=== PATIENT | female | born 1970 | race Caucasian/White ===

== ENCOUNTER 2016-08-30 22:31 | Emergency (ER) | payer MEDICAID, MEDICARE ==
[~2016-08-30] VITALS: Ht 177.8 cm; Wt 70.5 kg
[~2016-08-30 22:31] MED LIST: ATEN25TA7 PO; BUSP15 PO; FLE10 PO; FLUO40CA12 PO; HYDR1CAP2; LORA2ORA PO; WEL100 PO
[2016-08-30 22:36] VITALS: BP 128/78; PULSE 70; RESP 16; O2SAT 99
[2016-08-30 23:32] LABS: APPEARANCE,URINE CLOUDY (CLEAR,HAZY); COLOR,URINE YELLOW (YELLOW); OCCULT BLOOD,URINE MODERATE (NEGATIVE); UROBILINOGEN,URINE NORMAL (NORMAL)
--- NOTE | 2016-08-30 23:34 | ED.REPORT ---
HPI- Female Date of Service August 30, 2016 ED Provider: Chapito Devine MD Pt is a 46 y.o. female who presents to the ED c/o malodorous vaginal discharge onset 2 days ago. Pt reports associated lower abdominal pain, back pain, fever, nausea, and increased frequency of urination. She reports having her last menses 3 weeks ago but she is unsure if she ever removed her tampon and is wondering if this is the source of her symptoms. Nursing Notes Stated Complaint: ABD PAIN Chief Complaint: Female Abdominal Pain Nursing Notes Reviewed: Yes Allergies: Coded Allergies: venlafaxine (Verified Allergy, Severe, 08/30/16) Scheduled Atenolol-Expunged Drug, Do Not Renew! (Atenolol-Expunged Drug, Do Not Renew!) 25 Mg Tablet 25 MG PO DAILY Bupropion-Expunged Drug, Do Not Renew! (Bupropion-Expunged Drug, Do Not Renew!) 100 Mg Tablet 100 MG PO BID Buspirone-Expunged Drug, Do Not Renew! (Buspirone-Expunged Drug, Do Not Renew!) 15 Mg Tablet 15 MG PO TID Cephalexin (Cephalexin) 500 Mg Capsule 500 MG PO TID Cyclobenzaprine-Expunged Drug, Do Not Renew! (Flexeril-Expunged Drug, Do Not Renew!) 10 Mg Tablet 10 MG PO TID FLUoxetine-Expunged Drug, Do not Renew! (Prozac-Expunged Drug, Do not Renew!) 40 Mg Capsule 40 MG PO DAILY Miscellaneous Medications Hydrocod/APAP-Expunged, Do Not Renew! (Hydrocod/APAP 5/500-Expunged, Do Not Renew!) 1 Cap Capsule 10 Lorazepam-Expunged Drug, Do Not Renew! (Lorazepam-Expunged Drug, Do Not Renew!) 2 Mg/1 Ml Oral.conc 1 MG PO General Time Seen by MD: 23:33 Chief Complaint Vaginal discharge... (Malodorous) Hx Obtained From: Patient Arrived By: Walk-in Sudden in Onset?: Yes Onset Occurred: 2 days ago Symptom Duration: Since onset Location: : Abdomen lower: Back Quality: Painful Severity: Current: Mild Recent Healthcare: No recent doctor visit, No recent hospitalization Similar Sx Previous: No Past Medical History Past Medical History Fibromyalgia Chronic pain headaches Ambulatory Status Independent Review of Systems Constitutional: Reports: Fever GI: Reports: Abdominal pain, Nausea, Denies: Vomiting Female: Reports: Urinary frequency, Vaginal discharge (Malodorous) Musculoskeletal: Reports: Back pain Complete sys rev & neg: except as marked. Physical Exam Initial Vital Signs Vital Signs (First) Date Time Temp Pulse Resp B/P Pulse Ox O2 Delivery O2 Flow Rate FiO2 08/30/16 22:36 36.6 70 16 128/78 99 Room Air Initial VS: Reviewed, Vital signs normal Head / Eyes: Atraumatic, Normocephalic, PERRL Extremities: Vascular intact, Neuro intact Skin: Warm, Dry, No cyanosis Neurologic: Alert, Oriented, Nonfocal Psychiatric: Mood/affect normal, Behavior normal, Normal thought content Female Genitourinary: [employer] present, Atraumatic odorous without evidence of lost tampon yellow/brown discharge General/Constitutional: Awake, Alert, No acute distress, Well appearing, Well developed, Well hydrated, Well nourished, Not toxic appearing Respiratory / Chest: Atraumatic, Breath sounds NL, Breath sounds = bilat, No respiratory distress Cardiovascular: Heart rate NL, Regular rhythm, Heart sounds NL, Peripheral circulation NL Abdomen: Atraumatic, Soft, Non-tender, No guarding, No rebound, No distention Back: Atraumatic, Inspection NL Left CVA tenderness Interpretation & Diagnostics Lab Results Interpretation Result Diagram: 08/31/16 0051 08/31/16 0051 Test 08/30/16 23:22 08/31/16 00:05 08/31/16 00:16 08/31/16 00:51 Urine Color Yellow (YELLOW) Urine Appearance Cloudy (CLEAR,HAZY) Urine pH 6.0 (5.0-8.0) Urine Specific [place] 1.030 (1.003-1.035) Urine Protein 30mg/dL (NEG,TRACE) Urine Glucose (UA) Negativemg/dL (NEGATIVE) Urine Ketones Negativemg/dL (NEGATIVE) Urine Occult Blood Moderate (NEGATIVE) Urine Nitrite Negative (NEGATIVE) Urine Bilirubin Negative (NEGATIVE) Urine Urobilinogen Normalmg/dL (NORMAL) Urine Leukocyte Esterase Moderate (NEGATIVE) Urine RBC 3-10/hpf (0-2) Urine WBC >50/hpf (0-5) Urine Epithelial Cells Many/hpf (NONE-MOD) Urine Crystals None seen (NONE SEEN) Urine Bacteria Moderate/hpf (NONE-FEW) Urine Hyaline Casts None/lpf (NONE) Urine Granular Casts None seen (NONE SEEN) Urine Waxy Casts None seen (NONE SEEN) Urine Red Blood Cell Casts None seen (NONE SEEN) Urine White Blood Cell Casts None seen (NONE SEEN) Urine Mucus Present (None Seen) Urine Trichomonas None seen (NONE SEEN) Urine Yeast None (NONE SEEN) Urinalysis Comment None Urine Culture Reflexed Indicated Hold Purple Top Tube Received (Received) Hold Blue Top Tube Received (Received) Hold Red Top Tube Received (Received) Hold [place] Top Tube Received (Received) Hold Aldana Top Tube Received (Received) White Blood Count 7.4th/mm3 (3.8-10.1) Red Blood Count 4.43mil/mm3 (3.90-5.20) Hemoglobin 12.8g/dL (12.0-15.6) Hematocrit 38.3% (35.0-46.0) Mean Corpuscular Volume 86.5fL (81-100) Mean Corpuscular Hemoglobin 28.9pg (27.0-35.0) Mean Corpuscular Hemoglobin Concent 33.4% (32.0-37.0) Red Cell Distribution Width 13.9% (12.3-15.4) Platelet Count 250bil/L (150-400) Neutrophils (%) (Auto) 60.7% (40-74) Lymphocytes (%) (Auto) 31.6% (14-46) Monocytes (%) (Auto) 6.9% (4-12) Eosinophils (%) (Auto) 0.3% (0-5) Basophils (%) (Auto) 0.4% (0-3) Sodium Level 136mEq/L (134-144) Potassium Level 4.0mEq/L (3.5-5.2) Chloride Level 99mEq/L (97-108) Carbon Dioxide Level 22mmol/L (18-29) Blood Urea Nitrogen 12mg/dL (6-24) Creatinine 0.94mg/dL (0.57-1.00) Estimat Glomerular Filtration Rate 91mL/min (>59) Glucose Level 88mg/dL (60-99) Calcium Level 9.6mg/dL (8.5-10.1) Magnesium Level 2.0mg/dL (1.6-2.6) Total Bilirubin 0.6mg/dL (0.0-1.2) Aspartate Amino Transf (AST/SGOT) 35U/L (0-50) Alanine Aminotransferase (ALT/SGPT) 33U/L (0-32) Alkaline Phosphatase 70U/L (25-150) Total Protein 7.7g/dL (6.4-8.4) Albumin 4.2g/dL (3.4-5.0) Lab values outside NL range: no clinical significance. Lab Results Interpretation: Vaginal wet mount positive for Trichomonas. Urine >50 WBC per HPF Re-Eval/Medical Decision Med Decision/Clinical Course 46-year-old female presents with urinary frequency and foul-smelling vaginal discharge and suspicion for a lost tampon. Pelvic examination revealed no lost tampon, but the wet mount was positive for Trichomonas. Urinalysis shows urinary tract infection, culture pending. She had general malaise and some systemic symptoms so IV was started and labs were done. She had no evidence of sepsis or any vascular instability. She was hydrated with a liter saline and given 2 g of Rocephin and she felt much better. She will be discharged home with metronidazole and cephalexin. Source of Hx: Old records Re-Evaluation/Progress : Time of Eval: 01:29 Patient Status: Condition improved Re-Evaluation/Progress Note: Pt rechecked, who is resting. The diagnosis and plan for discharge are discussed. The pt understands and agrees with the plan. All questions are addressed at this time. Counseled Regarding: Diagnosis, Lab results, Need for follow-up, When/why to return to ED Discharge & Departure Impression: Primary Impression: Urinary tract infection Urinary tract infection type: site unspecified Hematuria presence: without hematuria Qualified Code: N39.0 - Urinary tract infection, site not specified Additional Impression: Trichomonas vaginitis Disposition: Home Discharge Condition All VS Reviewed: Yes Condition: Improved Patient Instructions: Trichomoniasis (ED) Additional Instructions: You have two infections: Urinary tract infection. You were given Rocephin 2 g IV to be followed by cephalexin (Keflex) 500 mg 3 times a day for the first 7 days, #21 prescribed. Drink plenty of fluids and cranberry juice. Urine rechecked in 2 weeks to make sure the infection went away. Vaginal Trichomonas. Metronidazole (Flagyl) 500 mg by mouth 3 times a day for 7 days, prepack dispensed. Your partner also needs to be treated. No unprotected sex until you both complete treatment. Referrals: Landry Ramirez MD (PCP) Richard Attestation Portions of this note were transcribed by Francisca Mackenzie. Dr. Nilson Matthews personally performed the history, physical exam and medical decision-making; I reviewed and confirmed the accuracy of the information in the transcribed note. Signed by: Richard Steinberg, 08/30/16 and 9509. Portions of this note were transcribed by Ayush Cobb. Cassie, Dr. Devine personally performed the history, physical exam and medical decision-making; I reviewed and confirmed the accuracy of the information in the transcribed note. Signed by: Richard Montenegro, 08/31/16 and 5040. copies to: Landry Ramirez MD, Howard L MD August 30, 2016 23:34 FRANCISCA MACKENZEI August 30, 2016 23:43 AYUSH COBB August 31, 2016 00:48
[2016-08-30] MEDS ORDERED: Ketorolac 15 mg/mL Inj IVPUSH ONE (23:45)
[2016-08-31] MEDS ORDERED: 0.9% Sodium Chloride 1,000 ML IV ONE (00:46)
[2016-08-31] MEDS ORDERED: cefTRIAXone Inj 2,000 MG in Dextrose 5% Minibag Plus 50 ML IV ONE (00:50)
[2016-08-31] MEDS ORDERED: Ondansetron 2 mg/mL 2 mL Inj IV PRN (00:50)
[2016-08-31 00:55] LABS: BASOPHILS % (AUTO) 0.4 % (0-3); EOSINOPHILS % (AUTO) 0.3 % (0-5); MONOCYTES % (AUTO) 6.9 % (4-12); Mean Corpuscular Hemoglobin 28.9 pg (27.0-35.0); Mean Corpuscular Volume 86.5 fL (81-100); NEUTROPHILS % (AUTO) 60.7 % (40-74); Platelet Count 250 bil/L (150-400)
[2016-08-31] MEDS ORDERED: CEPH500C PO (01:44)
[2016-08-31 02:04] VITALS: BP 130/80; PULSE 72; RESP 16; O2SAT 98
[2016-08-31] MEDS ORDERED: _metroNIDAZOLE 500 mg Tablet PO SCH (08:30)
[2016-09-03] MEDS ORDERED: SULF1TAB7 PO (09:34)
[2016-09-03] MEDS ORDERED: METR500T PO (09:34)
== END 2016-08-31 02:05 | disposition home or self-care (01) ==
LOC: SED 22:31
DX: N39.0 Urinary tract infection, site not specified (principal); A59.01 Trichomonal vulvovaginitis; B95.1 Streptococcus, group B, as the cause of diseases classified elsewhere; B95.62 Methicillin resistant Staphylococcus aureus infection as the cause of diseases classified elsewhere; Z79.899 Other long term (current) drug therapy; Z88.8 Allergy status to other drugs, medicaments and biological substances
CPT/HCPCS: 36415; 80053; 81000; 83735; 85025; 87077; 87086; 87088; 87147; 87186; 87210; 87491; 87591; 96365; 96375; 99284; J0696; J2405; J7030